=== PATIENT | male | born 1945 | race Caucasian/White ===

== ENCOUNTER 2017-01-16 07:51 | Emergency (ER) | payer MEDICARE ==
[2017-01-16 08:04] VITALS: BP 132/80
--- NOTE | 2017-01-16 09:29 | UC ---
Deangelo Hedrick Billy, [facility] 01[facility]16[facility]17 at 0908 . Ear Complaint HPI - HPI Summary HPI Summary: Patient is a 71 year-old male coming to [place] of revaluation of a plugged right ear for 1 week. He denies any recent swimming or illness. Nothing has made his symptoms better or worse. Other than the discomfort in the right ear, he reports no other complaints at this time. MD Note: Vitals stable. Nurse's Note: Pt states tahte his right ear feels plugged up. Pt states his ear has felt plugged for the last couple of weeks. Pt denies any pain in his ear. Pt complains of ringing in right ear. - History of Current Complaint Chief Complaint: UCEar Stated Complaint: EAR COMPLAINT Time Seen by Provider: 01/16/17 09:02 Hx Obtained From: Patient Onset/Duration: Gradual Onset, Lasting Days, Still Present Severity Initially: Moderate Severity Currently: Moderate Aggravating Factors: Nothing Alleviating Factors: Nothing - Allergies/Home Medications Allergies/Adverse Reactions: Allergies Allergy/AdvReac Type Severity Reaction Status Date / Time No Known Allergies Allergy Verified 01/16/17 07:57 Home Medications: Home Medications Aspirin [Aspirin 81 MG TAB] 1 tab PO DAILY 01/16/17 [History Confirmed 01/16/17] Metformin HCl [Glucophage] 1 tab PO BID 01/16/17 [History Confirmed 01/16/17] Multiple Vitamin [Multi Vitamin] 1 tab PO DAILY 01/16/17 [History Confirmed ] PMH/Surg Hx/FS Hx/Imm Hx Endocrine History Of: Reports: Diabetes - Surgical History Surgical History: None - Family History Known Family History: Positive: Cardiac Disease, Diabetes - Social History Occupation: Retired Alcohol Use: Occasionally Substance Use Type: None Smoking Status (MU): Former Smoker When Did the Patient Quit Smoking/Using Tobacco: 1972 Review of Systems Constitutional: Negative Skin: Negative Eyes: Negative ENT: Other - EAR DISCOMFORT, FEELS PLUGGED Respiratory: Negative Cardiovascular: Negative Gastrointestinal: Negative Genitourinary: Negative Motor: Negative Neurovascular: Negative Musculoskeletal: Negative Neurological: Negative Psychological: Negative All Other Systems Reviewed And Are Negative: Yes Physical Exam Triage Information Reviewed: Yes Appearance: Well-Appearing, No Pain Distress, Well-Nourished Vital Signs: Initial Vital Signs Temp 97.6 F 01/16/17 07:58 Pulse 73 01/16/17 07:58 Resp 16 01/16/17 07:58 BP 132/80 01/16/17 07:58 Pulse Ox 98 01/16/17 07:58 Vital Signs Reviewed: Yes ENT: Positive: Hearing grossly normal, Pharynx normal, Other: - EXTERNAL AUDITORY CANAL OF THE RIGHT EAR HAS A MODERATE AMOUNT OF CERUMEN IN IT.. Negative: Muffled/hoarse voice Neck: Positive: Supple, Nontender Respiratory: Positive: Chest non-tender, Lungs clear, Normal breath sounds, No respiratory distress Cardiovascular: Positive: RRR, No Murmur Abdomen Description: Positive: Nontender, No Organomegaly, Soft Bowel Sounds: Positive: Present Musculoskeletal: Positive: Strength Intact, ROM Intact Neurological: Positive: Alert Psychological: Positive: Age Appropriate Behavior Skin: Negative: rashes Re-Evaluation - Re-Evaluation First Eval Re-Evaluation Time: 09:21 Change: Improved Comment: Ear appears clean. Ear Complaint Course/Dx - Course Course Of Treatment: Medications have been included in the original chart and reviewed. Patient is Urgent/Emergent. BP elevated due to current condition w/o HTN in PMH. This is a 71 year-old male coming to the [facility] with a plugged ear sensation. A moderate amount of cerumen was visualized in the external auditory canal on exam. The ear was irrigated here with significant improvement. On MD re-eval, the ear was clean. - Differential Dx/Diagnosis Provider Diagnoses: cerumen impaction right ear Discharge - Discharge Plan Condition: Stable Disposition: HOME Patient Education Materials: Cerumen Impaction (ED) Referrals: Enrique Salas MD [Primary Care Provider] - Additional Instructions: Thank you for helping us improve patient care by filling out the [employer] Survey. Your right ear is now clean. Come back any time if you notice hearing change in your ears. The documentation as recorded by the Deangelo smallwood Billy accurately reflects the service I personally performed and the decisions made by me, Rafael Schwartz MD.
== END 2017-01-16 09:31 | disposition home or self-care (01) ==
LOC: UCEAST 07:51
DX: H61.21 Impacted cerumen, right ear (principal); E11.9 Type 2 diabetes mellitus without complications; Z79.84 Long term (current) use of oral hypoglycemic drugs; Z87.891 Personal history of nicotine dependence
CPT/HCPCS: 36415; 86803; 99202; G0463